=== PATIENT | female | born 1985 | race African-American/Black ===

== ENCOUNTER → 2020-04-23 08:19 | Outpatient (BNVA) | payer OTHER, SELFPAY | PROVIDERS: PCP Internal Medicine; Referring Provider Internal Medicine; Visit Provider Internal Medicine | DX: E04.2 Nontoxic multinodular goiter (principal); E55.9 Vitamin D deficiency, unspecified; E83.52 Hypercalcemia | CPT/HCPCS: Q3014 ==

== ENCOUNTER 2020-05-01 14:29 | Outpatient (REF) | payer OTHER, SELFPAY ==
[2020-05-02 11:09] LABS: BV Int Neg Control Negative (Negative); BV Int Pos Control Positive (Positive)
[2020-05-26 12:42] LABS: CT PCR NOT DETECTED (Not Detect.); NG PCR NOT DETECTED (Not Detect.)
== END 2020-05-01 14:30 | disposition home or self-care (01) ==
LOC: HO.LNP 14:29
PROVIDERS: Visit Provider Obstetrics & Gynecology
DX: N93.9 Abnormal uterine and vaginal bleeding, unspecified (principal)
CPT/HCPCS: 58100; 81025; 87480; 87491; 87510; 87591; 87660

== ENCOUNTER 2020-05-02 10:11 | Outpatient (REF) | payer OTHER, SELFPAY | END 2020-05-02 10:12 | disposition home or self-care (01) | LOC: HO.LAB 10:11 | PROVIDERS: Visit Provider Obstetrics & Gynecology | DX: N93.9 Abnormal uterine and vaginal bleeding, unspecified (principal); E66.9 Obesity, unspecified | CPT/HCPCS: 88305 ==

== ENCOUNTER → 2020-05-15 11:46 | Outpatient (BNVA) | payer OTHER, SELFPAY | PROVIDERS: PCP Internal Medicine; Visit Provider Obstetrics & Gynecology | DX: N84.0 Polyp of corpus uteri (principal); Z98.890 Other specified postprocedural states | CPT/HCPCS: Q3014 ==

== ENCOUNTER 2020-05-24 08:00 | Outpatient (REF) | payer OTHER, SELFPAY ==
--- NOTE | 2020-05-24 08:04 | US_ITS ---
EXAMINATION: US THYROID CLINICAL INFORMATION: Nontoxic multinodular goiter. COMPARISON: Ultrasound soft tissue head/neck thyroid dated 04/08/2019 and 01/11/2018 TECHNIQUE: Linear transducer wiggins-scale and color Doppler examination with attention to the region of the thyroid. FINDINGS: SIZE: Measurements of the thyroid lobes and nodules are given in sagittal, anteroposterior and transverse dimensions respectively. Right Thyroid Lobe: 4.9 x 1.4 x 2.1 cm, volume 7.5 mL. Previously 4.8 x 1.2 x 1.5 cm, volume 4.3 mL. Parenchyma: The gland echotexture is homogeneous. Thyroid vascularity is normal. Left Thyroid Lobe: 4.8 x 1.4 x 1.7 cm, volume 6.0 mL. Previously 4.7 x 1.5 x 1.4 cm, volume 5.3 mL. Parenchyma: The gland echotexture is homogeneous. Thyroid vascularity is normal. Isthmus: 0.3 cm in maximum AP dimension. Previously 0.2 cm. RIGHT THYROID LOBE: There are greater than 4 nodules seen. 1. Location: Superior. Size: 0.5 x 0.2 x 0.6 cm. Previous: 0.2 x 0.1 x 0.2 cm. Nodule characteristics: Heterogeneous, irregular shaped with intranodular flow. 2. Location: Superior. Size: 0.4 x 0.2 x 0.3 cm. Previous: New since the prior study. Nodule characteristics: Hypoechoic, irregular margins with intranodular flow. 3. Location: Middle. Size: 0.4 x 0.4 x 0.4 cm. Previous: 0.2 x 0.2 x 0.2 cm. Nodule characteristics: Hypoechoic, smoothly marginated with no intranodular flow. 4. Location: Superior/middle. Size: 0.3 x 0.3 x 0.3 cm. Previous: New since the prior study. Nodule characteristics: Hypoechoic, irregular margins with no intranodular flow. ISTHMUS: No nodules. LEFT THYROID LOBE: There are 3 nodules seen. 1. Location: Superior. Size: 0.3 x 0.2 x 0.2 cm. Previous: 0.2 x 0.2 x 0.2 cm. Nodule characteristics: Hypoechoic, smoothly marginated with no intranodular flow, likely simple cyst. 2. Location: Middle. Size: 1.4 x 0.7 x 1.1 cm. Previous: 0.9 x 0.5 x 0.8 cm. Nodule characteristics: Heterogeneous, smoothly marginated with intranodular flow. 3. Location: Middle. Size: 0.3 x 0.2 x 0.2 cm. Previous: New since the prior study. Nodule characteristics: Hypoechoic, irregular shaped with microcalcifications and peripheral flow. NODES: No lymphadenopathy is seen in the tissue surrounding the thyroid gland. US/US thyroid IMPRESSION: Multiple bilateral thyroid nodules with some of the nodules appearing minimally larger compared to previous study. Some of the nodules are new. One nodule in the lower pole left thyroid lobe seen previously is not visualized at this time.
== END 2020-05-24 08:01 | disposition home or self-care (01) ==
LOC: HO.US 08:00
PROVIDERS: Visit Provider Internal Medicine Endocrinology, Diabetes & Metabolism
DX: E04.2 Nontoxic multinodular goiter (principal)
CPT/HCPCS: 76536

== ENCOUNTER 2020-11-06 09:10 | Outpatient (REF) | payer OTHER, SELFPAY ==
[2020-11-06 11:43] LABS: Hematocrit 35.7 % (37-47); Hemoglobin 11.3 g/dl (12.0-16.0); Mean Corpuscular HGB Conc 31.7 g/dl (31.0-35.0); Mean Corpuscular Hemoglobin 26.1 pg (27.0-33.0); Mean Corpuscular Volume 82.4 fL (80-98); Mean Platelet Volume 9.5 fL (9.4-12.3); Platelet Count 400 X10*3/uL (160-400); Red Blood Count 4.33 X10*6/uL (4.20-5.50); Red Cell Distribution Width 14.7 % (11.0-16.0); White Blood Count 7.3 X10*3/uL (4.8-10.8)
[2020-11-06 12:19] LABS: Free T4 (Free Thyroxine) 0.83 ng/dL (0.71-1.85); Vitamin D 25-OH Total 15.3 ng/mL (>30)
[2020-11-06 12:24] LABS: Alanine Aminotransferase 14 U/L (0-31); Albumin Level 4.6 g/dL (3.5-5.0); Alkaline Phosphatase 88 U/L (39-117); Anion Gap 13 (12-20); Aspartate Amino Transferase 18 U/L (5-31); Bilirubin Total 0.4 mg/dL (0.0-1.0); Blood Urea Nitrogen 13 mg/dL (9-16); Calcium 9.7 mg/dL (8.4-10.2); Carbon Dioxide 25 mmol/L (22-29); Chloride 106 mmol/L (96-108); Estimated Glomerular Filt Rate > 60; Glucose Random 91 mg/dL (60-115); Iron 32 mcg/dL (30-160); Percent Iron Saturation 7 % (15-50); Phosphorus 3.9 mg/dL (2.7-4.5); Potassium 4.1 mmol/L (3.3-5.1); Sodium 140 mmol/L (135-145); Total Iron Binding Capacity 453 mcg/dL (228-428); Total Protein 7.7 g/dL (6.5-8.0); Unsaturated Iron Binding 421 ug/dL
[2020-11-06 12:34] LABS: Thyroid Stimulating Hormone 3.67 uIU/mL (0.32-4.0)
[2020-11-07 07:52] LABS: Triiodothyronine T3 Total 120 ng/dL (76-181)
[2020-11-07 14:27] LABS: Calcium (PTHI) 9.7 mg/dL (8.6-10.2); PTHI 53 pg/mL (14-64)
[2020-11-09 16:41] LABS: TS Negative Control Passed; TS Panel A 1; TS Panel B 0; TS Positive Control Passed; TSpotTB Negative (SeeBelow)
== END 2020-11-06 09:11 | disposition home or self-care (01) ==
LOC: HO.HMGCLDS 09:10
PROVIDERS: Internal Medicine; PCP Internal Medicine; Visit Provider Internal Medicine
DX: Z11.1 Encounter for screening for respiratory tuberculosis (principal); E04.2 Nontoxic multinodular goiter; D64.9 Anemia, unspecified; E83.52 Hypercalcemia
CPT/HCPCS: 36415; 80053; 82306; 82330; 83540; 83970; 84100; 84439; 84443; 84480; 85027; 86481

== ENCOUNTER → 2020-11-21 11:18 | Outpatient (BNVA) | payer OTHER, SELFPAY | PROVIDERS: PCP Internal Medicine; Visit Provider Internal Medicine ==

== ENCOUNTER 2021-04-25 09:45 | Outpatient (REF) | payer OTHER, SELFPAY | END 2021-04-25 09:46 | disposition home or self-care (01) | LOC: HO.US 09:45 | PROVIDERS: PCP Internal Medicine; Visit Provider Internal Medicine | DX: Z13.89 Encounter for screening for other disorder (principal) ==

== ENCOUNTER 2022-06-17 16:34 | Outpatient (REF) | payer OTHER, SELFPAY ==
[2022-06-17 17:27] LABS: Influenza A PCR NEGATIVE (Negative); Influenza B PCR NEGATIVE (Negative); Resp Syncy Virus RNA Qual PCR NEGATIVE (Negative); SARS COV2 PCR INHOUSE NEGATIVE (Negative)
== END 2022-06-17 16:35 | disposition home or self-care (01) ==
LOC: HO.LNP 16:34
PROVIDERS: Visit Provider Internal Medicine
DX: R09.89 Other specified symptoms and signs involving the circulatory and respiratory systems (principal); Z20.822 Contact with and (suspected) exposure to COVID-19
CPT/HCPCS: 0241U

== ENCOUNTER 2022-06-27 08:32 | Outpatient (REF) | payer OTHER, SELFPAY ==
[2022-06-27 11:31] LABS: MANUAL DIFF FLAG NO
[2022-06-27 11:59] LABS: Basophils Percent Auto 0.4 % (0-2); Eosinophils Absolute Auto 0.1 X10*3/uL (0.0-0.4); Eosinophils Percent Auto 1.3 % (0-4); Hematocrit 37.2 % (37.0-47.0); Hemoglobin 12.1 g/dl (12.0-16.0); Imm Gran Abs Auto 0.01 X10*3/uL (0.00-0.03); Imm Gran Pct Auto 0.1 % (0.0-0.4); Lymphocytes Absolute Auto 2.7 X10*3/uL (1.2-4.9); Lymphocytes Percent Auto 35.7 % (20-40); Mean Corpuscular HGB Conc 32.5 g/dl (31.0-35.0); Mean Corpuscular Hemoglobin 27.9 pg (27.0-33.0); Mean Corpuscular Volume 85.7 fL (80.0-98.0); Mean Platelet Volume 9.8 fL (9.4-12.3); Monocytes Absolute Auto 0.5 X10*3/uL (0.1-1.2); Monocytes Percent Auto 6.6 % (2-11); Neutrophils Absolute Auto 4.3 x10*3/uL (2.0-8.3); Neutrophils Percent Auto 55.9 % (45-73); Platelet Count 364 X10*3/uL (160-400); Red Blood Count 4.34 X10*6/uL (4.20-5.50); Red Cell Distribution Width 13.9 % (11.0-16.0); White Blood Count 7.7 X10*3/uL (4.8-10.8)
[2022-06-27 12:29] LABS: Alanine Aminotransferase 15 U/L (0-31); Albumin Level 4.3 g/dL (3.5-5.0); Alkaline Phosphatase 83 U/L (39-117); Anion Gap 14 (12-20); Aspartate Amino Transferase 18 U/L (5-31); Bilirubin Total 0.5 mg/dL (0.0-1.0); Blood Urea Nitrogen 12 mg/dL (9-16); Calcium 9.6 mg/dL (8.4-10.2); Carbon Dioxide 27 mmol/L (22-29); Chloride 105 mmol/L (96-108); Cholesterol 219 mg/dL; Estimated Glomerular Filt Rate > 60; Ferritin 48 ng/mL (10-122); Glucose Fasting 94 mg/dL (60-99); HDL Cholesterol 47 mg/dL; LDL Cholesterol Calculated 152 mg/dl; Potassium 4.5 mmol/L (3.3-5.1); Sodium 141 mmol/L (135-145); Total Protein 7.1 g/dL (6.5-8.0); Triglycerides 102 mg/dL
== END 2022-06-27 08:33 | disposition home or self-care (01) ==
LOC: HO.HMGCLDS 08:32
PROVIDERS: PCP Internal Medicine; Visit Provider Internal Medicine
DX: Z00.01 Encounter for general adult medical examination with abnormal findings (principal); D64.9 Anemia, unspecified; E83.52 Hypercalcemia
CPT/HCPCS: 36415; 80053; 80061; 82728; 85025

== ENCOUNTER 2022-09-12 11:29 | Outpatient (REF) | payer OTHER, SELFPAY ==
[2022-09-18 06:13] LABS: HPV mRNA E6/E7 rflx Not Detected (Not Detected)
== END 2022-09-12 11:30 | disposition home or self-care (01) ==
LOC: HO.LNP 11:29
PROVIDERS: PCP Internal Medicine; Visit Provider Advanced Practice Midwife
DX: Z01.411 Encounter for gynecological examination (general) (routine) with abnormal findings (principal); N92.6 Irregular menstruation, unspecified; R23.2 Flushing; R82.90 Unspecified abnormal findings in urine; Z20.2 Contact with and (suspected) exposure to infections with a predominantly sexual mode of transmission
CPT/HCPCS: 87624; 88142

== ENCOUNTER 2022-09-12 12:28 | Outpatient (REF) | payer OTHER, SELFPAY ==
[2022-09-12 14:15] LABS: HCG Quantitative < 2 mIU/mL; TSH reflex Free T4 2.54 uIU/mL (0.32-4.0)
[2022-09-13 04:35] LABS: CT PCR NOT DETECTED (Not Detect.); NG PCR NOT DETECTED (Not Detect.)
[2022-09-13 11:54] LABS: BV Int Neg Control Negative (Negative); BV Int Pos Control Positive (Positive)
[2022-09-14 13:39] LABS: DHEA Sulfate 105 mcg/dL (19-237); Follicle Stimulating Hormone 12.6 mIU/mL; Prolactin 6.3 ng/mL
[2022-09-23 11:59] LABS: Testosterone, Free 2.4 pg/mL (0.1-6.4); Testosterone, Total 18 ng/dL (2-45)
== END 2022-09-12 12:29 | disposition home or self-care (01) ==
LOC: HO.LAB 12:28
PROVIDERS: PCP Internal Medicine; Visit Provider Advanced Practice Midwife
DX: Z01.419 Encounter for gynecological examination (general) (routine) without abnormal findings (principal); N92.6 Irregular menstruation, unspecified; R23.2 Flushing; Z20.2 Contact with and (suspected) exposure to infections with a predominantly sexual mode of transmission
CPT/HCPCS: 0353U; 82627; 83001; 83498; 84146; 84402; 84403; 84443; 84702; 87480; 87510; 87660

== ENCOUNTER → 2022-09-18 07:29 | Outpatient (BNVA) | payer OTHER, SELFPAY | PROVIDERS: PCP Internal Medicine; Visit Provider Advanced Practice Midwife ==

== ENCOUNTER → 2022-09-24 07:43 | Outpatient (BNVA) | payer OTHER, SELFPAY | PROVIDERS: PCP Internal Medicine; Visit Provider Advanced Practice Midwife ==

== ENCOUNTER 2022-10-15 11:30 | Outpatient (REF) | payer OTHER, SELFPAY ==
--- NOTE | ~2022-10-15 | US_ITS ---
EXAMINATION: US PELVIS CLINICAL INFORMATION: Irregular menstruation. COMPARISON: None available. TECHNIQUE: Ultrasound of the pelvis is performed using both transabdominal and transvaginal transducers along with Doppler. Transvaginal imaging is performed due to inadequate visualization transabdominally. FINDINGS: Uterus: The uterus is anteverted and measures 8.1 x 4.5 x 5.5 cm The double wall endometrial thickness is 0.4 mm. The uterus is smooth in contour and has normal myometrial echogenicity. No visible fibroid. Adnexa: Both ovaries are visualized. There is normal color flow to the adnexa. There is no ovarian torsion. There is no pelvic ascites or fluid collection. Right ovary measures 2.0 x 1.4 x 2.1 cm. Volume 3.1 mL. There is an anechoic corpus luteal cyst measuring 1.6 x 0.9 x 1.6 cm. Left ovary measures 1.7 x 1.0 x 1.4 cm and volume 1.2 mL. Previously it measured 1.8 x 1.4 x 1.7 cm. There is no free fluid in the cul-de-sac. US/US pelvic and transvaginal IMPRESSION: 1. Unremarkable uterus. 2. Small corpus luteal cyst right ovary. 3. The left ovary is unremarkable.
== END 2022-10-15 11:31 | disposition home or self-care (01) ==
LOC: HO.US 11:30
PROVIDERS: PCP Internal Medicine; Visit Provider Advanced Practice Midwife
DX: N92.6 Irregular menstruation, unspecified (principal)
CPT/HCPCS: 76830; 76856

== ENCOUNTER → 2022-10-22 07:54 | Outpatient (BNVA) | payer OTHER, SELFPAY | PROVIDERS: PCP Internal Medicine; Visit Provider Advanced Practice Midwife ==

== ENCOUNTER 2022-10-23 12:08 | Outpatient (REF) | payer OTHER, SELFPAY ==
[2022-10-23 12:45] LABS: Appearance Urine Clear; Color Urine Yellow; Glucose Urine UA Negative (Negative); Leukocyte Esterase Urine Small (1+) (Negative); Nitrite Urine Negative (Negative); PH 5.5 (5.0-9.0); Specific Gravity - Urine >= 1.030 (1.005-1.025); UMIC TRIGGER UACC YES; Urine Blood Negative (Negative); Urine Ketones Trace mg/dL (Negative); Urine Protein Trace mg/dL (Neg-Trace)
[2022-10-23 13:07] LABS: Bacteria Urine None Seen (None Seen); Hyaline Casts Urine 0-2 /LPF (0-2); Squamous Epithelial Cell Urine 0-2 /HPF (0-2); UACC Culture Trigger YES; WBC Urine 0-5 /HPF (0-5)
== END 2022-10-23 12:09 | disposition home or self-care (01) ==
LOC: HO.LAB 12:08
PROVIDERS: PCP Internal Medicine; Visit Provider Advanced Practice Midwife
DX: R35.0 Frequency of micturition (principal)
CPT/HCPCS: 81001; 87086

== ENCOUNTER 2023-09-16 08:21 | Outpatient (AMB) | payer OTHER, SELFPAY ==
[2023-09-16 08:34] VITALS: BP 122/76; PULSE 60; O2SAT 98; BMI 38.4
--- NOTE | 2023-09-16 08:34 | MHC.OFFWIV ---
Intake Vital Signs 09/16/23 08:34 Height 5 ft 5 in Weight 231 lb BMI 38.4 BP 122/76 Blood Pressure Location Lt brachial Position Sitting Pulse 60 Pulse Source Pulse Oximeter Pulse Oximetry (%) 98 Oxygen Delivery Method Room Air Intake Visit Reasons: EP chest pain no triage Patient Tobacco Use Status: Never used Tobacco Allergies No Known Allergies [No Known Allergies*] Allergy (Verified 09/16/23 08:34) Medication List - Last Reconciled 09/16/23 by Jessica Michelle MD cholecalciferol (vitamin D3) 50 mcg PO DAILY 30 days ferrous sulfate 200 mg PO DAILY medroxyprogesterone (Provera) 10 mg PO DAILY Do you need a note to return to daycare/school/sports/work: No HPI EP chest pain no triage HPI Details Patient is a 38-year-old female came in today with a chief complaint of chest pain Patient says that it has been happening since July and on Sometime it last 2 minutes sometimes it lasts up to 7 minute Feels like a pressure in the middle of the chest Patient says that initially it was happening after eating but then it start happening randomly She was in emergency room last year for that and was given Prilosec but that caused epigastric discomfort so she stopped taking it EKG done today showed sinus rhythm with slight sinus arrhythmia and heart rate of 58 beats per minute I have ordered Holter monitor and echocardiogram for the patient And she is to start famotidine 20 mg b.i.d. Also we talked about the dietary restrictions, I would like her to avoid acidic foods specially tomato sauce, lemon juice, orange juice And stopped eating at least 4 hours before bedtime. Patient have appointment for physical exam coming up in a month, she will have follow-up at that visit as well. 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 She will bring that paperwork. [facility] Medical History Cyst of right ovary Frequency of urination Multinodular thyroid History of pre-eclampsia Heart murmur Anemia Menorrhagia Irregular uterine bleeding Dysfunctional uterine bleeding Anxiety Multiple thyroid nodules Low hemoglobin Vitamin D deficiency Enlarged thyroid Obesity Surgical History Hx of cholecystectomy Family History Mother Thyroid nodule Father Medical history unknown Other Mental health disorder Social History Household Members: Family Housing: Apartment Are you a primary post acute care nurse practitioner to a significant other at home: No Alcohol intake: never Patient Tobacco Use Status: Never used Tobacco e-Cigarette/Vaping Use: Never Used Current occupational status: employed 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 needs: No Hearing needs: No Vision needs: No Female Reproductive History Menstrual Age of Menarche: 14 Review of Systems Const Denies chills and Denies fever(s) ENT Denies epistaxis and Denies nasal discharge Resp Denies chest congestion, Denies cough and Denies hemoptysis GI Denies diarrhea and Denies nausea Skin/Breast Denies rash Neuro Reports no additional complaints Psych Reports no additional complaints Endo Reports no additional complaints Physical Exam Vital Signs: Last Vital Signs Pulse 60 09/16/23 08:34 BP 122/76 09/16/23 08:34 Pulse Ox 98 09/16/23 08:34 Oxygen Delivery Method Room Air 09/16/23 08:34 BMI result Body Mass Index 38.4 Const General: cooperative, comfortable and no acute distress Orientation/consciousness: patient oriented x3 HEENT Head: Yes normocephalic Eyes General: appearance normal, both eyes and all related structures Neck Other: Supple Neck: Yes supple Resp Effort & Inspection: normal respiratory effort, no cough and no stridor Cardio Rhythm: regular rhythm Heart sounds: S1 normal heart sound present and S2 normal heart sound present Skin General skin exam: turgor normal Neuro Other: Motor sensory intact General: patient oriented x3, tone normal and moves all extremities Extrem Other: No lower extremity swelling. Right lower extremity: no edema Left lower extremity: no edema Psych Other: Normal effect, speech clear Assessment & Plan Assessment & Plan (1) Chest pain: Code(s): R07.9 - Chest pain, unspecified Qualifiers: Chest pain type: other chest pain Qualified Code(s): R07.89 - Other chest pain (2) Bradycardia: Code(s): R00.1 - Bradycardia, unspecified (3) Sinus arrhythmia: Code(s): I49.8 - Other specified cardiac arrhythmias (4) Obesity due to excess calories: Code(s): E66.09 - Other obesity due to excess calories Qualifiers: Body mass index: BMI 38.0-38.9 Obesity classification: adult class 2 (BMI 35 - 39.9) Serious obesity comorbidity presence: without serious comorbidity Qualified Code(s): E66.09 - Other obesity due to excess calories; Z68.38 - Body mass index [BMI] 38.0-38.9, adult (5) Chronic GERD: Code(s): K21.9 - Gastro-esophageal reflux disease without esophagitis (6) Stress at work: Code(s): Z56.6 - Other physical and mental strain related to work Plan Patient is a 38-year-old female came in today with a chief complaint of chest pain Patient says that it has been happening since July and on Sometime it last 2 minutes sometimes it lasts up to 7 minute Feels like a pressure in the middle of the chest Patient says that initially it was happening after eating but then it start happening randomly She was in emergency room last year for that and was given Prilosec but that caused epigastric discomfort so she stopped taking it EKG done today showed sinus rhythm with slight sinus arrhythmia and heart rate of 58 beats per minute I have ordered Holter monitor and echocardiogram for the patient And she is to start famotidine 20 mg b.i.d. Also we talked about the dietary restrictions, I would like her to avoid acidic foods specially tomato sauce, lemon juice, orange juice And stopped eating at least 4 hours before bedtime. Patient have appointment for physical exam coming up in a month, she will have follow-up at that visit as well. 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 She will bring that paperwork. 40 minutes spent in care of this patient, including [id number], EKG, ordering tests Charting, coordination of care Orders: Orders ECG 3 day holter monitor Today R00.1 - Bradycardia, unspecified CA echo transthoracic complete Today I49.8 - Other specified cardiac arrhythmias, R00.1 - Bradycardia, unspecified Medications: New famotidine 20 mg PO BID 60 tabs 0RF 30 days Coding Level of Care Code Est Pt Level 5 (64639) Diagnoses Other chest pain R07.89 Chest pain type: other chest pain Bradycardia R00.1 Sinus arrhythmia I49.8 Class 2 obesity due to excess calories without serious comorbidity with body mass index (BMI) of 38.0 to 38.9 in adult E66.09; Z68.38 Body mass index: BMI 38.0-38.9 Obesity classification: adult class 2 (BMI 35 - 39.9) Serious obesity comorbidity presence: without serious comorbidity Chronic GERD K21.9 Stress at work Z56.6 Comment
== END 2023-09-16 09:02 | disposition home or self-care (01) ==
PROVIDERS: PCP Internal Medicine; Visit Provider Internal Medicine
DX: R07.89 Other chest pain (principal); R00.1 Bradycardia, unspecified; E66.09 Other obesity due to excess calories; Z68.38 Body mass index [BMI] 38.0-38.9, adult; K21.9 Gastro-esophageal reflux disease without esophagitis; Z56.6 Other physical and mental strain related to work
CPT/HCPCS: 93000; 99215

== ENCOUNTER 2023-09-29 11:45 | Outpatient (AMB) | payer OTHER, SELFPAY ==
--- NOTE | 2023-09-29 11:47 | A.OFFPC_ITS ---
Vital Signs 09/29/23 11:50 Height 5 ft 5 in Weight 230 lb 8 oz BMI 38.4 BP 122/78 Blood Pressure Location Rt brachial Position Sitting Pulse 80 Pulse Source Pulse Oximeter Pulse Oximetry (%) 99 Oxygen Delivery Method Room Air Intake Visit Reasons: Annual Physical~ Allergies No Known Allergies [No Known Allergies*] Allergy (Verified 09/29/23 11:54) Medication List - Last Reconciled 09/29/23 by Jessica Michelle MD cholecalciferol (vitamin D3) 50 mcg PO DAILY 30 days famotidine 20 mg PO BID 30 days ferrous sulfate 200 mg PO DAILY medroxyprogesterone (Provera) 10 mg PO DAILY Tobacco use date assessed: 09/29/23 Dental Screening Dental Screen Date: 09/29/23 Did you have a dental visit in the last 12 months?: Yes Did you have a dental problem in the last 6 months where you did not have access to dental care?: No Was dental information given to patient?: Patient has dentist HPI Annual Physical~ HPI Details Patient is a 38-year-old female came in today for physical examination She was started on famotidine last visit 2 weeks ago when she verbalized to having chest discomfort off and on Her EKG showed bradycardia of 58 beats per minute without any ST-T findings I did order echocardiogram and Holter monitor for the patient, cardiac lab has been trying to reach her but has not been able to. Cardiac lab number was given to patient today so she can call in book her own appointment However with the help of famotidine 2 times a day patient is feeling better, I would recommend to continue that for at least 3 months Labs done in June, there is no anemia, kidney function liver in functions intact BMI is elevated and her LDL was 152 We will be booking appointment with dietitian for dietary instructions. Ferritin level is 48, she may cut down iron supplement to every other day, still having heavy menstrual cycle She has OBGYN and is seeing them regularly. Follow-up 1 year physical exam [facility] Medical History Cyst of right ovary Frequency of urination Multinodular thyroid History of pre-eclampsia Heart murmur Anemia Menorrhagia Irregular uterine bleeding Dysfunctional uterine bleeding Anxiety Multiple thyroid nodules Low hemoglobin Vitamin D deficiency Enlarged thyroid Obesity Surgical History Hx of cholecystectomy Family History Mother Thyroid nodule Father Medical history unknown Other Mental health disorder Social History Household Members: Family Housing: Apartment Are you a primary healthcare recruiter to a significant other at home: No Alcohol intake: never Patient Tobacco Use Status: Never used Tobacco e-Cigarette/Vaping Use: Never Used Current occupational status: employed 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 1. Little interest or pleasure in doing things: not at all 2. Feeling down, depressed, or hopeless: not at all 3. Trouble falling or staying asleep, or sleeping too much: more than half the days 4. Feeling tired or having little energy: more than half the days 5. Poor appetite or overeating: not at all 6. Feeling bad about yourself - or that you are a failure or have let yourself or your family down: not at all 7. Trouble concentrating on things, such as reading the newspaper or watching television: not at all 8. Moving or speaking so slowly that other people could have noticed. Or the opposite - being so fidgety or restless that you have been moving around a lot more than usual: not at all 9. Thoughts that you would be better off or of hurting yourself in some way: not at all Total score: 4 Depression Screening Interpretation: Negative Depression Screening Done: Yes 63273 - PHQ-9 Billing: Yes Source: Developed by Drs. Ajith Sorto, Rachell Courtney, James Astudillo and colleagues, with an educational kristina from [employer]. Thrive Questionnaire Date Thrive assessed: 09/29/23 I am a: Patient What is your living situation today?: I have a steady place to live Within the past 12 months, did the food you bought not last and you didn't have the money to get more?: Never true Within the past 12 months, did you worry whether your food would run out before you got money to buy more?: Never true Do you have trouble paying for medicines?: No Do you have trouble getting transportation to medical appointments?: No Do you have trouble paying your heating and electricity bill?: No Do you have trouble taking care of your child, family member or friend?: No Do you have trouble with day-to-day activities such as bathing, preparing meals, shopping, managing finances, etc.?: No Are you currently unemployed and looking for a job?: No Are you interested in more education?: Yes Please select the resources that you would like help with: None Currently or been in a relationship where the following occur: no concerns reported THRIVE Score: 0 AUDIT C Alcohol Use Questionnaire (AUDIT-C) 1. How often do you have a drink containing alcohol?: Never 3. How often do you have six or more drinks on one occasion?: Never Total Score: 0 Score Reviewed/Action Taken: Yes GALINA-7 AMB Questionnaire GALINA-7 Date GALINA - 7 assessed: 09/29/23 Feeling nervous, anxious, or on edge: 0 = Not at all Not being able to stop or control worryin = Not at all Worrying too much about different things: 0 = Not at all Trouble relaxin = More than half the days Being so restless that it is hard to sit still: 0 = Not at all Becoming easily annoyed or irritable: 0 = Not at all Feeling afraid as if something awful might happen: 0 = Not at all Total GALINA-7 score (0-4 normal; 5-9 mild; 10-14 moderate; 15-21 severe): 2 Source: Developed by Drs. Ajith Sorto, Rachell Courtney, James Astudillo and colleagues, with an educational kristina from [employer]. GALINA-7 Assessment Billing GALINA-7 Assessment Tool: GALINA-7 Assessment 71471 Review of Systems Const Denies chills, Denies fever(s) and Denies headache(s) Eyes Denies blurry vision ENT Denies headache(s), Denies nasal discharge, Denies nasal obstruction, Denies odynophagia and Denies sinus pain Card Denies chest pain at rest and Denies chest pain with activity Resp Denies cough and Denies hemoptysis GI Denies diarrhea, Denies odynophagia, Denies vomiting and Denies hematemesis Reports as per HPI Musc Denies abnormal gait Skin/Breast Reports as per HPI Neuro Denies Neuro-related abnormal movements, Denies Abnormal speech present, Denies abnormal gait, Denies headache(s) and Denies Sensory deficit (Neuro) Psych Denies mood swings and Denies paranoia Endo Reports as per HPI Mak/Lymph Reports as per HPI Aller/Immun Reports as per HPI Physical exam (Primary Care) Vital Signs: Last Vital Signs Pulse 80 09/29/23 11:50 BP 122/78 09/29/23 11:50 Pulse Ox 99 09/29/23 11:50 Oxygen Delivery Method Room Air 09/29/23 11:50 BMI result Body Mass Index 38.4 Tobacco/Smoking Status: Tobacco use Status Tobacco use date assessed 09/29/23 09/29/23 11:54 Patient Tobacco Use Status Never used Tobacco 09/29/23 11:47 e-Cigarette/Vaping Use Never Used 09/29/23 11:47 Depression Screening Interpretation: Negative Thrive Assessment: Date of Thrive Assessment Date Thrive assessed 06/17/22 09/29/23 11:47 Currently or been in a relationship where the following occur: no concerns reported Const General: cooperative, comfortable and no acute distress Orientation/consciousness: patient oriented x3 HENMT Head: Yes normocephalic and Yes atraumatic Eyes General: appearance normal, both eyes and all related structures Pupils: Equal, round and reactive pupils present EOM: EOMs intact bilaterally Neck Neck: Yes supple and No lymphadenopathy Thyroid: Thyroid normal Lymphatic: no lymphadenopathy noted Resp Effort & Inspection: normal respiratory effort and able to speak in complete sentences Auscultation: clear to auscultation bilaterally Cardio Heart sounds: S1 normal heart sound present and S2 normal heart sound present GI Palpation (GI): Soft to palpation and nontender Auscultation: normal bowel sounds General: Yes no CVA tenderness Back/Spine/Pelvis Back: no CVA tenderness Skin General skin exam: elasticity normal and turgor normal Neuro General: patient oriented x3 and gait normal Cranial nerves: Yes Equal, round and reactive pupils present Speech: No Abnormal speech present Sensory Exam: No Sensory deficit (Neuro) Coordination: tandem gait normal and Romberg test negative Extrem General: Yes normal exam except as noted and No edema Assessment and Plan Assessment & Plan (1) Encounter for general adult medical examination with abnormal findings: Code(s): Z00.01 - Encounter for general adult medical examination with abnormal findings (2) Bradycardia: Code(s): R00.1 - Bradycardia, unspecified (3) Obesity due to excess calories: Code(s): E66.09 - Other obesity due to excess calories Qualifiers: Body mass index: BMI 38.0-38.9 Obesity classification: adult class 2 (BMI 35 - 39.9) Serious obesity comorbidity presence: without serious comorbidity Qualified Code(s): E66.09 - Other obesity due to excess calories; Z68.38 - Body mass index [BMI] 38.0-38.9, adult (4) Chronic GERD: Code(s): K21.9 - Gastro-esophageal reflux disease without esophagitis (5) Lipid disorder: Code(s): E78.9 - Disorder of lipoprotein metabolism, unspecified Plan Patient is a 38-year-old female came in today for physical examination She was started on famotidine last visit 2 weeks ago when she verbalized to having chest discomfort off and on Her EKG showed bradycardia of 58 beats per minute without any ST-T findings I did order echocardiogram and Holter monitor for the patient, cardiac lab has been trying to reach her but has not been able to. Cardiac lab number was given to patient today so she can call in book her own appointment However with the help of famotidine 2 times a day patient is feeling better, I would recommend to continue that for at least 3 months Labs done in June, there is no anemia, kidney function liver in functions intact BMI is elevated and her LDL was 152 We will be booking appointment with dietitian for dietary instructions. Ferritin level is 48, she may cut down iron supplement to every other day, still having heavy menstrual cycle She has OBGYN and is seeing them regularly. Follow-up 1 year physical exam Medications: Changed From famotidine 20 mg PO BID 30 days 60 tabs 0RF To famotidine 20 mg PO BID 90 days 180 tabs 1RF From cholecalciferol (vitamin D3) 50 mcg PO DAILY 30 days 30 caps 11RF To cholecalciferol (vitamin D3) 50 mcg PO DAILY 90 days 90 caps 1RF Coding Level of Care Code Est Pt Prev Care 18-39y(35600) Diagnoses Encounter for general adult medical examination with abnormal findings Z00.01 Bradycardia R00.1 Class 2 obesity due to excess calories without serious comorbidity with body mass index (BMI) of 38.0 to 38.9 in adult E66.09; Z68.38 Body mass index: BMI 38.0-38.9 Obesity classification: adult class 2 (BMI 35 - 39.9) Serious obesity comorbidity presence: without serious comorbidity Chronic GERD K21.9 Lipid disorder E78.9 Additional Codes GALINA-7 Assessment Billing - GALINA-7 Assessment Tool: GALINA-7 Assessment [id number] ([id number])
[2023-09-29 11:50] VITALS: BP 122/78; PULSE 80; O2SAT 99; BMI 38.4
== END 2023-09-29 12:33 | disposition home or self-care (01) ==
PROVIDERS: PCP Internal Medicine; Visit Provider Internal Medicine
DX: Z00.00 Encounter for general adult medical examination without abnormal findings (principal); R00.1 Bradycardia, unspecified; E66.09 Other obesity due to excess calories; Z68.38 Body mass index [BMI] 38.0-38.9, adult; K21.9 Gastro-esophageal reflux disease without esophagitis; E78.9 Disorder of lipoprotein metabolism, unspecified
CPT/HCPCS: 99395

== ENCOUNTER 2023-10-01 08:34 | Outpatient (AMB) | payer OTHER, SELFPAY ==
--- NOTE | 2023-10-01 09:52 | A.OFFPC_ITS ---
Intake Visit Reasons: FMLA Paperwork~ [phone] Allergies No Known Allergies [No Known Allergies*] Allergy (Verified 09/29/23 11:54) Medication List - Last Reconciled 10/01/23 by Jessica Michelle MD cholecalciferol (vitamin D3) 50 mcg PO DAILY 90 days famotidine 20 mg PO BID 90 days ferrous sulfate 200 mg PO DAILY medroxyprogesterone (Provera) 10 mg PO DAILY Tobacco use date assessed: 09/29/23 Dental Screening Dental Screen Date: 09/29/23 HPI FMLA Paperwork~ [phone] HPI Details Patient is 38 year old female who has been having chest pains off and on associated with Dizziness she took sometimes off from work in jun, when she was also evaluated in ER for that she is under investigation for that at this time she want FMLA paper work filled at this time as she will be taking some times off those days when she is not feeling well June 19 2023 till 02/17/2024 Still has not called cardiac lab for echo and Holter apts advised patient to do so khadra i have also placed Cardio referral for her [facility] Medical History Cyst of right ovary Frequency of urination Multinodular thyroid History of pre-eclampsia Heart murmur Anemia Menorrhagia Irregular uterine bleeding Dysfunctional uterine bleeding Anxiety Multiple thyroid nodules Low hemoglobin Vitamin D deficiency Enlarged thyroid Obesity Surgical History Hx of cholecystectomy Family History Mother Thyroid nodule Father Medical history unknown Other Mental health disorder Social History Household Members: Family Housing: Apartment Are you a primary child care associate teacher to a significant other at home: No Alcohol intake: never Patient Tobacco Use Status: Never used Tobacco e-Cigarette/Vaping Use: Never Used Current occupational status: employed 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 Ajith Sorto, Rachell Courtney, James Astudillo and colleagues, with an educational kristina from [employer]. Review of Systems Const Denies chills and Denies fever(s) ENT Denies epistaxis and Denies nasal discharge Resp Denies chest congestion, Denies cough and Denies hemoptysis GI Denies diarrhea and Denies nausea Skin/Breast Denies rash Neuro Reports no additional complaints Psych Reports no additional complaints Endo Reports no additional complaints Physical exam (Primary Care) Tobacco/Smoking Status: Tobacco use Status Tobacco use date assessed 09/29/23 10/01/23 09:54 Patient Tobacco Use Status Never used Tobacco 10/01/23 09:54 e-Cigarette/Vaping Use Never Used 10/01/23 09:54 Thrive Assessment: Date of Thrive Assessment Date Thrive assessed 09/29/23 10/01/23 09:54 Telehealth Telehealth Telehealth Platform: FRM Study Course Location of provider rendering services: practice address Location of patient: address on file Patient Identification confirmed using: Name, : Yes Telehealth method: video (attempted) Patient verbally consented to treatment: Yes Patient verbally consented to billing insurance company: Yes Patient informed of any privacy concerns related to visit: Yes Minutes spent on Phone/Video with Pt.: 17 Assessment and Plan Assessment & Plan (1) Chest pain: Code(s): R07.9 - Chest pain, unspecified Qualifiers: Chest pain type: other chest pain Qualified Code(s): R07.89 - Other chest pain (2) Bradycardia: Code(s): R00.1 - Bradycardia, unspecified Plan Patient is 38 year old female who has been having chest pains off and on associated with Dizziness she took sometimes off from work in jun, when she was also evaluated in ER for that she is under investigation for that at this time she want FMLA paper work filled at this time as she will be taking some times off those days when she is not feeling well June 19 2023 till 02/17/2024 Still has not called cardiac lab for echo and Holter apts advised patient to do so khadra i have also placed Cardio referral for her Orders: Referrals Cardiology Referral R00.1 - Bradycardia, unspecified, R07.89 - Other chest pain Coding Level of Care Code Tele Est Pt Level 3 (55382) Diagnoses Other chest pain R07.89 Chest pain type: other chest pain Bradycardia R00.1
== END 2023-10-01 10:46 | disposition home or self-care (01) ==
LOC: HO.HMGC 08:34
PROVIDERS: PCP Internal Medicine; Visit Provider Internal Medicine
DX: R07.89 Other chest pain (principal); R00.1 Bradycardia, unspecified
CPT/HCPCS: 99213

== ENCOUNTER 2023-10-16 08:24 | Outpatient (AMB) | payer OTHER, SELFPAY ==
--- NOTE | 2023-10-16 08:33 | AM.OFFWIN_ITS ---
Intake Vital Signs 10/16/23 08:34 Height 5 ft 5 in Weight 230 lb BMI 38.3 BP 122/70 Blood Pressure Location Rt brachial Position Sitting Pulse 78 Pulse Source Pulse Oximeter Temp 98.2 F Temp Source Oral Pulse Oximetry (%) 100 Oxygen Delivery Method Room Air Intake Visit Reasons: Est/ congestion (lobby masked) Intake Note: pt is here for c/o runny nose, congestion, fever, chills since thursday Patient Tobacco Use Status: Never used Tobacco Allergies No Known Allergies [No Known Allergies*] Allergy (Verified 10/16/23 08:35) Do you need a note to return to daycare/school/sports/work: Yes HPI HPI Comments History of Present Illness Details She presents to office wit cold symptoms Ongoing since Thursday Fever chills, congestion, ST. cough, chest tightness +increase urination, increased thurst an d fatigue No hx diabetes No dysurian, hematuria, back or abdominal pain She took Tylenol for fever No other medicine taken Worst complaint is ST, cough and headache No covid tests at home taken She denies phlegm with cough PFSH Medical History Cyst of right ovary Frequency of urination Multinodular thyroid History of pre-eclampsia Heart murmur Anemia Menorrhagia Irregular uterine bleeding Dysfunctional uterine bleeding Anxiety Multiple thyroid nodules Low hemoglobin Vitamin D deficiency Enlarged thyroid Obesity Surgical History Hx of cholecystectomy Family History Mother Thyroid nodule Father Medical history unknown Other Mental health disorder Social History Household Members: Family Housing: Apartment Are you a primary laboratory animal care veterinarian to a significant other at home: No Alcohol intake: never Patient Tobacco Use Status: Never used Tobacco e-Cigarette/Vaping Use: Never Used Current occupational status: employed 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 needs: No Hearing needs: No Vision needs: No Female Reproductive History Menstrual Age of Menarche: 14 Review of Systems Const Reports chills, Reports fatigue, Reports fever(s) and Reports headache(s) Eyes Denies blurry vision and Denies change in vision ENT Denies dizziness, Denies otalgia, Reports headache(s), Reports nasal discharge, Denies sinus pressure, Reports sore throat and Denies throat swelling Card Denies syncope and Denies rapid heart rate Resp Reports chest congestion, Reports cough and Reports pain with cough GI Denies abdominal pain, Denies constipation, Denies diarrhea, Denies nausea and Denies vomiting Denies hematuria, Denies dysuria, Denies urinary hesitancy, Denies urinary urgency and Reports other (urinary frequency ) Musc Denies back pain and Denies myalgias Skin/Breast Denies rash Neuro Denies dizziness, Denies syncope and Reports headache(s) Endo Reports fatigue and Reports polydipsia Aller/Immun Denies throat swelling Physical Exam Vital Signs: Last Vital Signs Temp 98.2 F 10/16/23 08:34 Pulse 78 10/16/23 08:34 BP 122/70 10/16/23 08:34 Pulse Ox 100 10/16/23 08:34 Oxygen Delivery Method Room Air 10/16/23 08:34 BMI result Body Mass Index 38.3 General: Non-toxic, NAD. Speaking full sentences. Skin: Warm dry throughout Eye: EOMI HENT: Airway patent. Uvula midline. No pharyngeal erythema or edema. No [employer]. Bilateral canals clear. TM non-erythematous, non-bulging. No TM perforation or hemotympanum noted. Lymph: No lymphadenopathy Respiratory: CTA bilaterally. No wheezes, rales or rhonchi. + dry cough on examination Cardiac: RRR. No murmur MSK: Full ROM extremities. Neurology: A/O. No aphasia or facial droop. Gait without abnormality Psych: Good mood and affect Assessment & Plan Assessment & Plan (1) Upper respiratory infection: Code(s): J06.9 - Acute upper respiratory infection, unspecified Qualifiers: URI type: unspecified viral URI Qualified Code(s): J06.9 - Acute upper respiratory infection, unspecified Plan: Patient seen and evaluated. Vitals stable and lungs cta Strep: negative Covid/Flu/RSV ordered and obtained Tessalon for cough F/U with PCP Work note given Patient gave verbal understanding and had no additional questions or concerns at time of discharge All questions answered (2) Increased thirst: Code(s): R63.1 - Polydipsia Plan: Obtained a poc glucose. pt states minimal to eat/drink this am prior to visit. POC glucose: 100 Pt declined giving urine sample as she states she can't and has no other UTI symptoms such as back pain, abdominal pain, hematuria, urgency, dysuria or hesitency Orders: Orders SARS-CoV2/FLU/RSV Today J06.9 - Acute upper respiratory infection, unspecified Medications: New benzonatate 100 mg PO BID-TID PRN 14 caps 0RF cough Coding Level of Care Code Est Pt Level 3 (01899) Diagnoses Viral upper respiratory tract infection J06.9 URI type: unspecified viral URI Increased thirst R63.1
[2023-10-16 08:34] VITALS: BP 122/70; PULSE 78; TEMP 36.8; O2SAT 100; BMI 38.3
== END 2023-10-16 12:40 | disposition home or self-care (01) ==
PROVIDERS: PCP Internal Medicine; Visit Provider Physician Assistant
DX: J06.9 Acute upper respiratory infection, unspecified (principal); R63.1 Polydipsia
CPT/HCPCS: 99213

== ENCOUNTER 2023-10-16 10:50 | Outpatient (REF) | payer OTHER, SELFPAY ==
[2023-10-16 12:14] LABS: Influenza A PCR NEGATIVE (Negative); Influenza B PCR NEGATIVE (Negative); Resp Syncy Virus RNA Qual PCR NEGATIVE (Negative); SARS COV2 PCR INHOUSE NEGATIVE (Negative)
== END 2023-10-16 10:51 | disposition home or self-care (01) ==
LOC: HO.LNP 10:50
PROVIDERS: Visit Provider Physician Assistant
DX: J06.9 Acute upper respiratory infection, unspecified (principal)
CPT/HCPCS: 0241U

== ENCOUNTER 2023-10-22 09:21 | Outpatient (AMB) | payer OTHER, SELFPAY ==
[2023-10-22 09:33] VITALS: BP 122/70; BMI 37.9
--- NOTE | 2023-10-22 09:33 | A.OFFVIS_ITS ---
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 Doing well with concerns: No menses for 3 months, admits to stress having a cardiac workup due to chest pain initially thought to have acid reflux and has started famotidine. 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 Denies any signs of hirsutism, nipple discharge, or other symptoms. Is not currently sexually active and denies any risk to . Declines need for STD screening. Denies any vaginal itching or irritation Denies family history of breast, ovarian or colon cancer. Last pap smear 2022, negative. [facility] Medical History Cyst of right ovary Frequency of urination Multinodular thyroid History of pre-eclampsia Heart murmur Anemia Menorrhagia Irregular uterine bleeding Dysfunctional uterine bleeding Anxiety Multiple thyroid nodules Low hemoglobin Vitamin D deficiency Enlarged thyroid Obesity Surgical History Hx of cholecystectomy Family History Mother Thyroid nodule Father Medical history unknown Other Mental health disorder Social History Household Members: Family Housing: Apartment Are you a primary career information specialist to a significant other at home: No Alcohol intake: never Patient Tobacco Use Status: Never used Tobacco e-Cigarette/Vaping Use: Never Used Current occupational status: employed 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 needs: No Hearing needs: No Vision needs: No Female Reproductive History Menstrual Age of Menarche: 14 Duration of menses: 8-10 days control method: none Total pregnancies: 1 Full term: 1 Number of Living Children: 1 Date of last pap smear: 09/12/22 (negative) Review of Systems Const All systems reviewed & are unremarkable except as noted in HPI and below Reports as per HPI Eyes Reports no additional complaints ENT Reports no additional complaints Card Reports no additional complaints Resp Reports no additional complaints GI Reports as per HPI and Reports no additional complaints Reports as per HPI Musc Reports no additional complaints Skin/Breast Reports as per HPI Neuro Reports no additional complaints Psych Reports no additional complaints Endo Reports no additional complaints Mak/Lymph Reports no additional complaints Aller/Immun Reports no additional complaints Physical Exam Vital Signs: Last Vital Signs BP 122/70 10/22/23 09:33 BMI result Body Mass Index 37.9 Const General: cooperative, healthy appearing, no acute distress, well developed and alert Orientation/consciousness: patient oriented x3 HEENT Head: Yes normal to inspection Eyes General: appearance normal, both eyes and all related structures Neck Neck: Yes normal visual inspection Thyroid: Thyroid normal Chest Chest palpation & inspection: normal inspection of the chest and other (no puckering, dimpling, peau de orange, retraction, discharge, masses) Breast/axilla inspection: normal inspection of the breasts Breast/axilla palpation: normal palpation of the breasts Resp Effort & Inspection: normal respiratory effort GI Inspection: Yes normal to inspection Palpation (GI): Soft to palpation Rectal Exam - Female: deferred General: Yes bladder normal to palpation External Female Exam: normal external appearance and normal appearance of the urethra Speculum Exam - Vagina: normal appearance of the vagina, normal palpation, normal vaginal discharge and other (Small amount of blood at cervix and vagina) Speculum Exam - Cervix: normal appearance of the cervix and normal palpation Bimanual exam- vagina & uterus: normal bimanual exam, normal palpation, uterine size normal, bladder normal to palpation, normal palpation and non-tender Bimanual Exam- Adnexa, other: no masses Skin General skin exam: no rashes or lesions noted Rashes: no rashes Neuro General: patient oriented x3 Cognition (Neuro): normal cognition Extrem General: Yes normal to inspection Psych Attitude: cooperative Thought process: Normal thought process present Assessment & Plan Assessment & Plan (1) Encounter for well woman exam with routine gynecological exam: Code(s): Z01.419 - Encounter for gynecological examination (general) (routine) without abnormal findings Category: Medical (2) Amenorrhea: Code(s): N91.2 - Amenorrhea, unspecified Category: Medical Plan Discussed: Current recommendations for pap smears per ASCCP guidelines. Breast awareness and periodic breast exams. Maintain a healthy lifestyle including a well balanced diet and routine exercise. Workup for amenorrhea to include labs, plan follow up- okay for tele visit for results. 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 Common causes for amenorrhea including stress and obesity, other sources listed. Encouraged the weight loss small steps and goals may help balance any hormonal shifts. Reduction of stress. Patient verbalizes understanding and agrees to the plan of care. She was given opportunity to ask questions and all questions were answered to the best of my ability. RTO in one year for annual physician gynecologist examination. This note is constructed using voice recognition software. While every effort has been made to ensure accuracy, industrial hygiene engineer errors may have been included. Orders: Orders HCG Quantitative Today N91.2 - Amenorrhea, unspecified Prolactin Today N91.2 - Amenorrhea, unspecified Thyroid Stimulating Hormone Today N91.2 - Amenorrhea, unspecified Follicle Stimulating Hormone Today N91.2 - Amenorrhea, unspecified Estrad Free (Tot Ultra + Free) Today N91.2 - Amenorrhea, unspecified Coding Level of Care Code Est Pt Prev Care 18-39y(08178) Diagnoses Encounter for well woman exam with routine gynecological exam Z01.419 Amenorrhea N91.2
== END 2023-10-22 10:01 | disposition home or self-care (01) ==
LOC: HO.HWSW 09:21
PROVIDERS: PCP Internal Medicine; Visit Provider Advanced Practice Midwife
DX: Z01.419 Encounter for gynecological examination (general) (routine) without abnormal findings (principal); N91.2 Amenorrhea, unspecified
CPT/HCPCS: 99395

== ENCOUNTER → 2023-10-22 10:09 | Outpatient (REF) | payer OTHER, SELFPAY ==
--- NOTE | 2023-10-22 10:23 | HM_ITS ---
* Total monitoring time about 5 days. * Underlying rhythm is sinus with an average rate of 78/Min. * Very rare supraventricular and ventricular ectopy. * No sustained arrhythmias. * No significant pauses or AV blocks. * No patient markers and diary not submitted. MTDD
--- NOTE | 2023-10-22 10:23 | CA_ITS ---
Transthoracic Echocardiogram Patient (Last, First, Middle): Aicha Ward, Gender: Female Date of : 1985 Age: 38 Procedure Date: 10/22/2023 Procedure Type: Transthoracic Echocardiogram Location: OP Height: 165.1 cm Weight: 132.9 kg BSA: 2.33 m2 Heart Rate: 78 bpm BP: 122 / 70 mmHg Hone Operator: SILVIA Referring MD: Jessica Michelle MD Shuttle Bus Driver: Tejas Edward MD Symptoms: R00.1 - Bradycardia, unspecified Study Quality: Adequate ECG Rhythm: Sinus Conclusions: - Essentially normal study Findings Left Ventricle Normal left ventricular size, thickness, and systolic function. The visually estimated ejection fraction is between 60-65%. Spectral Doppler is indicative of a normal filling pattern. Right Ventricle Normal right ventricular cavity size and systolic function. Atria Both atria are normal in size. There is no evidence of interatrial shunt. Aortic Valve Normal aortic valve structure and function. There is no aortic valve stenosis. There is no aortic valve regurgitation. Mitral Valve Normal mitral valve structure and function. There is trace mitral valve regurgitation. There is no mitral valve stenosis. Pulmonic Valve The pulmonic valve is likely normal. Tricuspid Valve Normal tricuspid valve structure. There is trace tricuspid valve regurgitation. The right ventricular systolic pressure is normal. The right ventricular systolic pressure is 27 mmHg. Normal right atrial pressure. There is no evidence of pulmonary hypertension. Great Vessels All visible segments of the aorta are normal in size. The pulmonary artery was not well visualized. Venous The inferior vena cava is normal in size and collapses greater than 50% with inspiration. Pericardium/Pleural There is no evidence of pericardial effusion. Prior Study Comparison No prior study available for comparison. Measurements 2D Linear Measurements IVSd: 0.93 0.6-0.9/0.6-1.0 cm LVIDd: 4.74 3.9-5.3/4.2-5.9 cm LVIDd Index: 2.03 2.4-3.2/2.2-3.1 cm/m2 LVIDs: 3.07 2.0-3.6 cm LVPWd: 0.72 0.7-1.1 cm LA Diam: 3.60 2.7-3.8/3.0-4.0 cm LAIDs Index: 1.55 1.5-2.3 cm/m2 LV Mass: 160.34 67-162/88-224 g LV Mass Index: 68.82 43-95/49-115 g/m2 LVOT Diam: 1.90 3.0+(-)1.3 cm 2D Systolic Function EF 4C: 59.80 >55% EF 2C: 60.50 >55% EF BiP: 60.50 >55% Mitral Valve MV Pk E: 0.89 MV PK A: 0.69 MV Decel Time: 182.00 E/A: 1.30 E'Lateral: 17.40 E'Medial: 9.68 E/E' Med: 9.20 E/E' Lat: 5.10 PHT: 53.00 MVA PHT: 4.15 Decel [place]: 4.89 Aortic Valve AoV Pk Manolo: 1.42 AoV Pk Grad: 8.00 EDWIN: 2.26 LVOT LVOT Pk Manolo: 1.11 LVOT Mn Manolo: 0.81 LVOT VTI: 0.23 LVOT Pk Grad: 5.00 LVOT Mn Grad: 3.00 LVOT Diam: 1.90 LVOT Area: 2.84 Diastolic Function MV Pk E: 0.89 MV Pk A: 0.69 E/A: 1.30 E'Medial: 9.68 E/E' Med: 9.20 E' Laterial: 17.40 E/E' Lat: 5.10 Right Ventricle TAPSE (mm): 20.30 TVS' Manolo: 14.90 Tricuspid Valve TR Pk Manolo: 2.47 TR Pk Grad: 24.00 RA Press: 3.00 RVSP: 27.00 Great Vessels Aorta Sinus of Valsalva: 2.70 2.0-3.5 cm Ao Asc: 2.70 2.1-3.4 cm Ao Arch: 2.30 Pulmonary Valve PV Pk Manolo: 1.05 Peak PV Grad: 4.00 Updated in Other Vendor System with Status of Final Tejas Edward MD electronically signed on 10/22/2023 2:30:43 PM with status of Final
[2023-10-22 11:49] LABS: HCG Quantitative < 2 mIU/mL; Thyroid Stimulating Hormone 3.04 uIU/mL (0.32-4.0)
[2023-10-22 11:54] LABS: Appearance Urine Turbid; Color Urine Dark Yellow; Glucose Urine UA Negative (Negative); Leukocyte Esterase Urine Trace (Negative); Nitrite Urine Negative (Negative); PH 5.5 (5.0-9.0); Specific Gravity - Urine >= 1.030 (1.005-1.025); UMIC TRIGGER UACC YES; Urine Blood Moderate (2+) (Negative); Urine Ketones Trace mg/dL (Negative); Urine Protein Trace mg/dL (Neg-Trace)
[2023-10-22 12:06] LABS: Bacteria Urine None Seen (None Seen); Hyaline Casts Urine 0-2 /LPF (0-2); WBC Urine 0-5 /HPF (0-5)
[2023-10-24 10:08] LABS: Follicle Stimulating Hormone 4.6 mIU/mL; Prolactin 9.9 ng/mL
[2023-10-29 23:38] LABS: Estradiol Free 0.72 pg/mL; Estradiol, Ultrasensitive 43 pg/mL
== END ==
LOC: HO.CARD 10:09
PROVIDERS: Advanced Practice Midwife; PCP Internal Medicine; Visit Provider Internal Medicine
DX: R00.1 Bradycardia, unspecified (principal); I49.8 Other specified cardiac arrhythmias; N91.2 Amenorrhea, unspecified
CPT/HCPCS: 36415; 81001; 82670; 82681; 83001; 84146; 84443; 84702; 93242; 93306

== ENCOUNTER → 2023-10-22 10:23 | Outpatient (BNV) | payer OTHER, SELFPAY | PROVIDERS: PCP Internal Medicine; Visit Provider Internal Medicine Cardiovascular Disease | DX: I47.10 Supraventricular tachycardia, unspecified (principal); I49.3 Ventricular premature depolarization | CPT/HCPCS: 93244; 93306 ==

== ENCOUNTER → 2023-11-06 07:38 | Outpatient (BNVA) | payer OTHER, SELFPAY | PROVIDERS: PCP Internal Medicine; Visit Provider Advanced Practice Midwife ==

== ENCOUNTER 2023-11-17 08:54 | Outpatient (REF) | payer OTHER, SELFPAY ==
[2023-11-17 10:33] LABS: Hematocrit 36.4 % (37.0-47.0); Hemoglobin 11.7 g/dl (12.0-16.0); Mean Corpuscular HGB Conc 32.1 g/dl (31.0-35.0); Mean Corpuscular Hemoglobin 27.2 pg (27.0-33.0); Mean Corpuscular Volume 84.7 fL (80.0-98.0); Mean Platelet Volume 9.3 fL (9.4-12.3); Platelet Count 354 X10*3/uL (160-400); Red Cell Distribution Width 14.6 % (11.0-16.0); White Blood Count 9.4 X10*3/uL (4.8-10.8)
== END 2023-11-17 08:55 | disposition home or self-care (01) ==
LOC: HO.LAB 08:54
PROVIDERS: PCP Internal Medicine; Visit Provider Obstetrics & Gynecology
DX: N93.9 Abnormal uterine and vaginal bleeding, unspecified (principal)
CPT/HCPCS: 36415; 85027

== ENCOUNTER 2023-11-17 08:54 | Outpatient (AMB) | payer OTHER, SELFPAY ==
[2023-11-17 09:02] VITALS: BP 108/60; BMI 37.8
--- NOTE | 2023-11-17 09:02 | A.OFFVIS_ITS ---
Vital Signs 11/17/23 09:02 Height 5 ft 5 in Weight 227 lb 1.218 oz BMI 37.8 BP 108/60 Intake Visit Reasons: Hysteroscopy consult Allergies No Known Allergies [No Known Allergies*] Allergy (Verified 11/06/23 07:39) HPI Comments Details: Presenting referred from Aimee Guzmán CNM regarding abnormal uterine bleeding. The patient has been having irregular menstrual cycles the following workup was done recently: In 11/08 TSH, hCG, prolactin within normal FSH in the menopausal range. Last pelvic ultrasound was in 10/07, last co testing in 09/07 was negative The patient recently experienced chest pain was seen by her PCP , Holter monitor any echocardiogram was done and the patient has a cardiology consult scheduled on 01/04/2024 [facility] Medical History Cyst of right ovary Frequency of urination Multinodular thyroid History of pre-eclampsia Heart murmur Anemia Menorrhagia Irregular uterine bleeding Dysfunctional uterine bleeding Anxiety Multiple thyroid nodules Low hemoglobin Vitamin D deficiency Enlarged thyroid Obesity Surgical History Hx of cholecystectomy Family History Mother Thyroid nodule Father Medical history unknown Other Mental health disorder Social History Household Members: Family Housing: Apartment Are you a primary complex care nurse practitioner to a significant other at home: No Alcohol intake: never Patient Tobacco Use Status: Never used Tobacco e-Cigarette/Vaping Use: Never Used Current occupational status: employed 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 needs: No Hearing needs: No Vision needs: No Female Reproductive History Menstrual Age of Menarche: 14 Review of Systems Const All systems reviewed & are unremarkable except as noted in HPI and below Reports as per HPI and Reports no additional complaints GI Reports no additional complaints Reports no additional complaints Physical Exam Vital Signs: Last Vital Signs BP 108/60 11/17/23 09:02 BMI result Body Mass Index 37.8 Assessment & Plan Assessment & Plan (1) Abnormal uterine bleeding: Code(s): N93.9 - Abnormal uterine and vaginal bleeding, unspecified Category: Medical Plan: CBC and pelvic ultrasound ordered. Discussed with the patient the different causes of abnormal bleeding including thyroid disorders, uterine and ovarian pathology, endometrial hyperplasia, carcinoma and other potential causes. Discussed with the patient the work up including CBC (to r/o anemia), TSH, pro lactin, pelvic Ultrasound, endometrial sampling to r/o endometrial pathology. Recommended to the patient that the next step is an endometrial sampling via hysteroscopy D&C possible polypectomy versus endometrial biopsy to r/o endometrial pathology including hyperplasia or cancer. All the pros and cons risks and benefits of each approach were discussed with the patient, endometrial biopsy being less invasive, office procedure with less sensitivity and inability diagnose a polyp and removal versus hysteroscopy done under anesthesia more invasive more sensitive to endometrial cancer and possibility of diagnosing and endometrial polyp with the possibility of polypectomy. All questions were answered pt verbalized understanding and decided to proceed with hysteroscopy D&C possible polypectomy/myomectomy. Instructions given the patient to schedule a preop appointment after cardiology consult appointment after 01/04/2024. Orders: Orders Complete Blood Count no Diff Today N93.9 - Abnormal uterine and vaginal bleeding, unspecified US pelvic and transvaginal Today N93.9 - Abnormal uterine and vaginal bleeding, unspecified Coding Level of Care Code Est Pt Level 3 (47462) Diagnoses Abnormal uterine bleeding N93.9
== END 2023-11-17 09:40 | disposition home or self-care (01) ==
LOC: HO.HWS 08:54
PROVIDERS: PCP Internal Medicine; Visit Provider Obstetrics & Gynecology
DX: N93.9 Abnormal uterine and vaginal bleeding, unspecified (principal)
CPT/HCPCS: 99213

== ENCOUNTER 2023-11-26 11:18 | Outpatient (REF) | payer OTHER, SELFPAY ==
--- NOTE | ~2023-11-26 | US_ITS ---
EXAMINATION: US PELVIS CLINICAL INFORMATION: Abnormal uterine and vaginal bleeding. COMPARISON: Pelvic ultrasound 10/15/2022. TECHNIQUE: Ultrasound of the pelvis is performed using both transabdominal and transvaginal transducers along with Doppler. Transvaginal imaging is performed due to inadequate visualization transabdominally. FINDINGS: Uterus: The uterus is anteverted and measures 7.4 x 3.8 x 5.4 cm. The double wall endometrial thickness is 5 mm. Nabothian cysts are present in the cervix. The uterus is smooth in contour and has normal myometrial echogenicity. No visible fibroid. Adnexa: Both ovaries are visualized. There is normal color flow to the adnexa. There is no ovarian torsion. There is no pelvic ascites or fluid collection. Right ovary measures 2.6 x 1.4 x 1.6 cm for a volume of 3.1 mL. Left ovary measures 2.2 x 1.3 x 1.7 cm for a volume of 2.6 mL. US/US pelvic and transvaginal IMPRESSION: Unremarkable pelvic ultrasound.
== END 2023-11-26 11:19 | disposition home or self-care (01) ==
LOC: HO.US 11:18
PROVIDERS: PCP Internal Medicine; Visit Provider Obstetrics & Gynecology
DX: N93.9 Abnormal uterine and vaginal bleeding, unspecified (principal)
CPT/HCPCS: 76830; 76856

== ENCOUNTER → 2024-01-12 14:20 | Outpatient (RCR) | payer OTHER, SELFPAY ==
[2020-03-16 13:47] VITALS: BP 133/70; RESP 12; TEMP 36.6; O2SAT 99; BMI 37.4
--- NOTE | 2020-03-16 14:04 | PM.HEMONCCN ---
Subjective - Subjective Chief complaint: Generalized weakness Consult date: 03/16/20 Primary Care Provider: Jessica Michelle MD HPI - Consult Narrative Reason for consult: Anemia Narrative: Aicha Ward is a 35 year old female referred for evaluation of anemia. She was 1st told of anemia in the summer of 2019 when she developed severe menstrual bleeding. Her hemoglobin was down to around 7 gram/dL in she received 1 unit blood transfusion. She was on oral iron supplementation for a few weeks, but she took herself off this medication because of mild constipation. Her last heavy period was in January. She has been seen by outboard system operator, she was recommended endometrial biopsy but has not yet had it. At this time, she denies any bleeding, exertional chest pain, shortness of breath or abdominal pain. She has some dizziness and weakness. 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 She has a 10-year-old child, she was not told of iron deficiency anemia during her . Review of Systems - Constitutional Reports as per HPI, Reports no additional constitutional complaints - Cardiovascular Reports no additional cardiovascular complaints - Respiratory Reports no additional respiratory complaints - Gastrointestinal Reports no additional gastrointestinal complaints, Denies abdominal pain, Denies black, tarry stools, Denies bloating, Denies bright, red blood in stools, Denies change in bowel habits, Denies nausea Oncology Screenings - ECOG Performance Status ECOG Performance Status: 1 [facility] Medical History: Medical History (Last Updated 03/16/20 @ 10:23 by Lorin Gunter) Anemia Anxiety Dysfunctional uterine bleeding Enlarged thyroid Heart murmur History of pre-eclampsia Irregular uterine bleeding Low hemoglobin Menorrhagia Multiple thyroid nodules Obesity Vitamin D deficiency Surgical History: Surgical History (Last Updated 03/16/20 @ 10:32 by Lorin Gunter) Hx of cholecystectomy Smoking status: Never smoker Home Medications and Allergies Home Medications Medication Instructions Recorded Confirmed Type ferrous sulfate 200 mg PO DAILY 03/16/20 03/16/20 History Allergies Allergy/AdvReac Type Severity Reaction Status Date / Time No Known Allergies Allergy Unverified 02/02/20 19:08 [No Known Allergies*] Physical Exam Vital signs: Vital Signs Temp 98 F 03/16/20 13:47 Resp 12 03/16/20 13:47 BP 133/70 03/16/20 13:47 Pulse Ox 99 03/16/20 13:47 Intake & Output 10/03/16/20 03/16/20 18:59 06:59 18:59 Other: Weight 102 kg Weight 102 kg - Constitutional Present: no acute distress - Routine HEENT Exam Head: Present: atraumatic, normal inspection Eye: Present: EOMI - Routine Neck Exam Present: supple, thyromegaly. Absent: lymphadenopathy - Routine Respiratory Exam Present: CTAB - Routine Cardiovascular Exam Cardiovascular: Present: RRR, S1, S2 - Routine Abdominal Exam Present: normal bowel sounds, soft. Absent: organomegaly - Routine Extremities Exam Present: full ROM. Absent: pedal edema - Routine Skin Exam Present: intact. 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 She required a blood transfusion in November 2019 because of severe anemia. She did respond to oral iron but she stopped taking it because of mild constipation. Today I discussed parenteral iron therapy, however patient would prefer to be on oral iron supplementation. She is willing to restart. I have asked her to take iron with vitamin-C to enhance absorption at least twice a day. I discussed using stool softeners if necessary for constipation. I asked her to call back if she does not tolerate oral iron. Rest of hematological workup is pending. She has no gastrointestinal symptoms to suggest GI blood losses. I thank you very much for this consultation. Follow-up in 2-3 months.
[2020-03-16 14:52] LABS: MANUAL DIFF FLAG NO
[2020-03-16 14:57] LABS: Basophils Percent Auto 0.3 % (0-2); Eosinophils Absolute Auto 0.1 X10*3/uL (0.0-0.4); Hematocrit 31.3 % (37-47); Hemoglobin 9.4 g/dl (12.0-16.0); Imm Gran Abs Auto 0.03 X10*3/uL (0.00-0.03); Imm Gran Pct Auto 0.3 % (0.0-0.4); Immature Retic Fraction 33.1 % (3.0-15.9); Lymphocytes Absolute Auto 2.7 X10*3/uL (1.2-4.9); Lymphocytes Percent Auto 26.7 % (20-40); Mean Corpuscular Volume 79.8 fL (80-98); Mean Platelet Volume 9.6 fL (9.4-12.3); Monocytes Absolute Auto 0.8 X10*3/uL (0.1-1.2); Neutrophils Absolute Auto 6.4 X10*3/uL (2.0-8.3); Neutrophils Percent Auto 63.7 % (45-73); Platelet Count 482 X10*3/uL (160-400); Red Blood Count 3.92 X10*6/uL (4.20-5.50); Red Cell Distribution Width 14.6 % (11.0-16.0); Retic HGB Equivalent 24.2 pg (30.0-35.0); Reticulocyte Percent 1.4 % (0.5-1.8); Reticulocytes Absolute 0.053 X10*6/uL (0.026-0.095); White Blood Count 10.1 X10*3/uL (4.8-10.8)
[2020-03-16 15:22] LABS: Iron 32 mcg/dL (30-160); Percent Iron Saturation 6 % (15-50); Total Iron Binding Capacity 506 mcg/dL (228-428); Unsaturated Iron Binding 474 ug/dL
--- NOTE | 2020-03-16 15:23 | PC.NURSE ---
Spoke with patient, i let her know that Dr Jansen would like her to take iron BID- she agrees. I also notified patient that I made her an appt for 05/22/2020 at 1:20pm.
[2020-03-16 15:55] LABS: Folate 9.7 ng/mL (> or = 4.0); Vitamin B12 531 pg/mL (200-900)
== END | disposition home or self-care (01) ==
LOC: HO.ONC 03-16 13:38
PROVIDERS: PCP Internal Medicine; Visit Provider Internal Medicine
DX: D50.0 Iron deficiency anemia secondary to blood loss (chronic) (principal); N92.1 Excessive and frequent menstruation with irregular cycle
CPT/HCPCS: 36415; 82607; 82746; 83540; 85025; 85045; 99204

== ENCOUNTER 2024-10-05 08:52 | Outpatient (AMB) | payer OTHER, SELFPAY ==
[2024-10-05 08:56] VITALS: BP 108/70; PULSE 66; O2SAT 99; BMI 39.6
--- NOTE | 2024-10-05 08:56 | A.OFFPC_ITS ---
Vital Signs 10/05/24 08:56 Height 5 ft 5 in Weight 238 lb BMI 39.6 BP 108/70 Blood Pressure Location Rt brachial Position Sitting Pulse 66 Pulse Source Pulse Oximeter Pulse Oximetry (%) 99 Oxygen Delivery Method Room Air Intake Visit Reasons: Annual PE Rn Otolaryngology Required: No Accompanied by: Self / Same As Patient Allergies No Known Allergies [No Known Allergies*] Allergy (Verified 10/05/24 08:57) Medication List - Last Reconciled 10/05/24 by Jessica Michelle MD cholecalciferol (vitamin D3) 50 mcg PO DAILY 90 days ferrous sulfate 200 mg PO DAILY Tobacco use date assessed: 10/05/24 Dental Screening Dental Screen Date: 10/05/24 Did you have a dental visit in the last 12 months?: Yes Did you have a dental problem in the last 6 months where you did not have access to dental care?: No Was dental information given to patient?: Patient has dentist HPI Annual PE HPI Details Physical exam appointment - The patient is a 39-year-old female pr esenting for a wellness visit. - Anemia: Patient was identified to be s lightly anemic last year with a hemoglobin level of 11.7 g/dL, for which she is currently taking iron supplements. She is not currently aware of any symptoms, but potential related cause identified as heavy menstrual bleeding. - Nasal Congestion: The patient reports nasal congestion possibly related to weather changes or allergies. - The patient denies experiencing heartb urn which was previously listed in her medical history but states no current issues. Health Maintenance - FARM SERVICE CONSULTANT visit is up to date, though angeline niño has yet to schedule a follow-up appointment. - Regular exercise discussed; patient en gages in walking for weight management. Medications - Iron supplements for management of ane karena. 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. Diagnostic results - Labs: Anemia identified with hemoglobi n level of 11.7 g/dL last year. Patient Instructions - Schedule an appointment with FARM SERVICE CONSULTANT as follow-up is necessary. - Increase physical activity to aid in w eight management. - Attend scheduled lab tests for monitor ing anemia. - Encourage continuation of current leslie min regimen. Review of Systems - General: No fever no chills - Neurological: No headaches no dizzin ess - Ear nose throat: No sore throat no hearing difficulty no ear pain - Cardiovascular: No syncope, no chest pain, no palpitations - Gastrointestinal: No nausea vomiting or diarrhea - Endocrine: No polyuria polydipsia no heat intolerance - Genitourinary: No dysuria - Skin: No new complaints Physical Exam General: Cooperative, healthy appearing, comfortable, no acute distress Orientation: Patient oriented x3 Head: Normal to inspection Ears: Within normal limit visually Nose: Nasal congestion present, possibly due to weather or cold Face and sinus: Normal facial exam Eyes: Appearance normal, extraocular movement intact pupils reactive Neck: Normal visual inspection and supple Respiratory: Normal respiratory effort and able to speak in complete sentences. Clear to auscultation, no stridor Cardiovascular: S1 and S2 RRR Breast exam benign GI: Normal to inspection. Soft to palpation and nontender Skin: Turgor normal, no acute findings, benign spots noted previously Neuro: Patient oriented x3, motor sensory intact, balance intact, tandem pass Extremities: Normal to inspection, no pain in knees PFSH Medical History Cyst of right ovary Frequency of urination Multinodular thyroid History of pre-eclampsia Heart murmur Anemia Menorrhagia Irregular uterine bleeding Dysfunctional uterine bleeding Anxiety Multiple thyroid nodules Low hemoglobin Vitamin D deficiency Enlarged thyroid Obesity Surgical History Hx of cholecystectomy Family History Mother Thyroid nodule Father Medical history unknown Other Mental health disorder Social History Household Members: Family Housing: Apartment Are you a primary animal daycare provider to a significant other at home: No Alcohol intake: never Patient Tobacco Use Status: Never used Tobacco e-Cigarette/Vaping Use: Never Used Current occupational status: employed 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 1. Little interest or pleasure in doing things: more than half the days 2. Feeling down, depressed, or hopeless: more than half the days 3. Trouble falling or staying asleep, or sleeping too much: more than half the days 4. Feeling tired or having little energy: more than half the days 5. Poor appetite or overeating: not at all 6. Feeling bad about yourself - or that you are a failure or have let yourself or your family down: more than half the days 7. Trouble concentrating on things, such as reading the newspaper or watching television: not at all 8. Moving or speaking so slowly that other people could have noticed. Or the opposite - being so fidgety or restless that you have been moving around a lot more than usual: not at all 9. Thoughts that you would be better off or of hurting yourself in some way: not at all Total score: 10 Depression Screening Interpretation: Positive Depression Screening Follow-up: Existing condition and Community Mental Health Worker F/U Depression Screening Done: Yes 89784 - PHQ-9 Billing: Yes Source: Developed by Drs. Ajith Sorto, Rachell Courtney, James Astudillo and colleagues, with an educational kristina from [employer]. Thrive Questionnaire Date Thrive assessed: 10/05/24 I am a: Patient What is your living situation today?: I have a steady place to live Within the past 12 months, did the food you bought not last and you didn't have the money to get more?: Never true Within the past 12 months, did you worry whether your food would run out before you got money to buy more?: Never true Do you have trouble paying for medicines?: No Do you have trouble getting transportation to medical appointments?: No Do you have trouble paying your heating and electricity bill?: No Do you have trouble taking care of your child, family member or friend?: No Do you have trouble with day-to-day activities such as bathing, preparing meals, shopping, managing finances, etc.?: No Are you currently unemployed and looking for a job?: No Are you interested in more education?: Yes Please select the resources that you would like help with: Education Currently or been in a relationship where the following occur: No concerns reported THRIVE Score: 0 AUDIT C Alcohol Use Questionnaire (AUDIT-C) 1. How often do you have a drink containing alcohol?: Never 3. How often do you have six or more drinks on one occasion?: Never Total Score: 0 Score Reviewed/Action Taken: Yes GALINA-7 AMB Questionnaire GALINA-7 Date GALINA - 7 assessed: 10/05/24 Feeling nervous, anxious, or on edge: 2 = More than half the days Not being able to stop or control worryin = More than half the days Worrying too much about different things: 2 = More than half the days Trouble relaxin = More than half the days Being so restless that it is hard to sit still: 0 = Not at all Becoming easily annoyed or irritable: 0 = Not at all Feeling afraid as if something awful might happen: 0 = Not at all Total GALINA-7 score (0-4 normal; 5-9 mild; 10-14 moderate; 15-21 severe): 8 Source: Developed by Drs. Ajith Sorto, Rachell Courtney, James Astudillo and colleagues, with an educational kristina from [employer]. GALINA-7 Assessment Billing GALINA-7 Assessment Tool: GALINA-7 Assessment 40878 Physical exam (Primary Care) Vital Signs: Last Vital Signs Pulse 66 10/05/24 08:56 BP 108/70 10/05/24 08:56 Pulse Ox 99 10/05/24 08:56 Oxygen Delivery Method Room Air 10/05/24 08:56 BMI result Body Mass Index 39.6 Tobacco/Smoking Status: Tobacco use Status Tobacco use date assessed 10/05/24 10/05/24 08:59 Patient Tobacco Use Status Never used Tobacco 10/05/24 08:59 e-Cigarette/Vaping Use Never Used 10/05/24 08:59 PHQ-9: PHQ-9 Score PHQ-9: Total score 10 10/05/24 09:16 Depression Screening Interpretation: Positive Depression Screening Follow-up: Existing condition and Community Mental Health Worker F/U Thrive Assessment: Date of Thrive Assessment Date Thrive assessed 10/05/24 10/05/24 08:59 Currently or been in a relationship where the following occur: No concerns reported Coding Level of Care Code Est Pt Level 3 (29138) Est Pt Prev Care 18-39y(89162) Diagnoses Encounter for general adult medical examination with abnormal findings Z00.01 Iron deficiency anemia due to chronic blood loss D50.0 Anemia type: iron deficiency Iron deficiency anemia type: chronic blood loss Class 2 obesity due to excess calories without serious comorbidity with body mass index (BMI) of 38.0 to 38.9 in adult E66.09; Z68.38 Body mass index: BMI 38.0-38.9 Obesity classification: adult class 2 (BMI 35 - 39.9) Serious obesity comorbidity presence: without serious comorbidity Positive depression screening Z13.31 Additional Codes GALINA-7 Assessment Billing - GALINA-7 Assessment Tool: GALINA-7 Assessment 18577 ([id number]) PHQ-9 - 35800 - PHQ-9 Billing: Yes ([id number]) Assessment & Plan Assessment & Plan (1) Encounter for general adult medical examination with abnormal findings: Code(s): Z00.01 - Encounter for general adult medical examination with abnormal findings Category: Medical (2) Anemia: Code(s): D64.9 - Anemia, unspecified Category: Medical Qualifiers: Anemia type: iron deficiency Iron deficiency anemia type: chronic blood loss Qualified Code(s): D50.0 - Iron deficiency anemia secondary to blood loss (chronic) (3) Obesity due to excess calories: Code(s): E66.09 - Other obesity due to excess calories Category: Medical Qualifiers: Body mass index: BMI 38.0-38.9 Obesity classification: adult class 2 (BMI 35 - 39.9) Serious obesity comorbidity presence: without serious comorbidity Qualified Code(s): E66.09 - Other obesity due to excess calories; Z68.38 - Body mass index [BMI] 38.0-38.9, adult (4) Positive depression screening: Code(s): Z13.31 - Encounter for screening for depression Category: Medical Plan Physical exam appointment - The patient is a 39-year-old female presenting for a wellness visit. - Anemia: Patient was identified to be slightly anemic last year with a h emoglobin level of 11.7 g/dL, for which she is currently taking iron supplements. She is not currently aware of any symptoms, but potential related cause identified as heavy menstrual bleeding. - Nasal Congestion: The patient reports nasal congestion possibly related to weather changes or allergies. - The patient denies experiencing heartburn which was previously listed in her medical history but states no current issues. Health Maintenance - FARM SERVICE CONSULTANT visit is up to date, though patient has yet to schedule a follow-up appointment. - Regular exercise discussed; patient engages in walking for weight management. Medications - Iron supplements for management of anemia. 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. Diagnostic results - Labs: Anemia identified with hemoglobin level of 11.7 g/dL last year. Patient Instructions - Schedule an appointment with FARM SERVICE CONSULTANT as follow-up is necessary. - Increase physical activity to aid in weight management. - Attend scheduled lab tests for monitoring anemia. - Encourage continuation of current vitamin regimen. Orders: Orders Vitamin D 25-OH (D2 and D3) Today D50.0 - Iron deficiency anemia secondary to blood loss (chronic), E66.09 - Other obesity due to excess calories, Z00.01 - Encounter for general adult medical examination with abnormal findings, Z68.38 - Body mass index [BMI] 38.0-38.9, adult Complete Blood Count Auto Diff Today D50.0 - Iron deficiency anemia secondary to blood loss (chronic), E66.09 - Other obesity due to excess calories, Z00.01 - Encounter for general adult medical examination with abnormal findings, Z68.38 - Body mass index [BMI] 38.0-38.9, adult Comprehensive [place]. Panel Fast Today D50.0 - Iron deficiency anemia secondary to blood loss (chronic), E66.09 - Other obesity due to excess calories, Z00.01 - Encounter for general adult medical examination with abnormal findings, Z68.38 - Body mass index [BMI] 38.0-38.9, adult Lipid Panel Today D50.0 - Iron deficiency anemia secondary to blood loss (chronic), E66.09 - Other obesity due to excess calories, Z00.01 - Encounter for general adult medical examination with abnormal findings, Z68.38 - Body mass index [BMI] 38.0-38.9, adult
== END 2024-10-05 09:14 | disposition home or self-care (01) ==
LOC: HO.HMCC 08:53
PROVIDERS: PCP Internal Medicine; Visit Provider Internal Medicine
DX: Z00.01 Encounter for general adult medical examination with abnormal findings (principal); D50.0 Iron deficiency anemia secondary to blood loss (chronic); E66.09 Other obesity due to excess calories; Z68.38 Body mass index [BMI] 38.0-38.9, adult; Z13.31 Encounter for screening for depression

== ENCOUNTER 2024-10-05 08:52 | Outpatient (REF) | payer OTHER, SELFPAY ==
[2024-10-05 10:10] LABS: MANUAL DIFF FLAG NO
[2024-10-05 10:11] LABS: Basophils Percent Auto 0.3 % (0-2); Eosinophils Absolute Auto 0.1 X10*3/uL (0.0-0.4); Eosinophils Percent Auto 1.2 % (0-4); Hematocrit 39.2 % (37.0-47.0); Hemoglobin 12.5 g/dl (12.0-16.0); Imm Gran Abs Auto 0.02 X10*3/uL (0.00-0.03); Imm Gran Pct Auto 0.3 % (0.0-0.4); Lymphocytes Absolute Auto 2.7 X10*3/uL (1.2-4.9); Lymphocytes Percent Auto 40.5 % (20-40); Mean Corpuscular HGB Conc 31.9 g/dl (31.0-35.0); Mean Corpuscular Hemoglobin 27.5 pg (27.0-33.0); Mean Corpuscular Volume 86.2 fL (80.0-98.0); Mean Platelet Volume 9.2 fL (9.4-12.3); Monocytes Absolute Auto 0.4 X10*3/uL (0.1-1.2); Monocytes Percent Auto 5.3 % (2-11); Neutrophils Absolute Auto 3.5 x10*3/uL (2.0-8.3); Neutrophils Percent Auto 52.4 % (45-73); Platelet Count 387 X10*3/uL (160-400); Red Blood Count 4.55 X10*6/uL (4.20-5.50); Red Cell Distribution Width 14.1 % (11.0-16.0); White Blood Count 6.7 X10*3/uL (4.8-10.8)
[2024-10-05 10:59] LABS: Alanine Aminotransferase 29 U/L (0-31); Albumin Level 4.6 g/dL (3.5-5.0); Alkaline Phosphatase 87 U/L (39-117); Anion Gap 10 (12-20); Aspartate Amino Transferase 30 U/L (5-31); Bilirubin Total 0.4 mg/dL (0.0-1.0); Blood Urea Nitrogen 14 mg/dL (9-16); Calcium 9.4 mg/dL (8.4-10.2); Carbon Dioxide 27 mmol/L (22-29); Chloride 106 mmol/L (96-108); Cholesterol 208 mg/dL (<200); Estimated Glomerular Filt Rate > 60; Glucose Fasting 103 mg/dL (60-99); HDL Cholesterol 47 mg/dL (>40); LDL Cholesterol Calculated 135 mg/dL (<100); Sodium 139 mmol/L (135-145); Triglycerides 130 mg/dL (<150)
[2024-10-09 16:32] LABS: Vitamin D 25-OH, D2 <4 ng/mL; Vitamin D 25-OH, D3 28 ng/mL; Vitamin D 25-OH, Total 28 ng/mL (30-100)
== END 2024-10-05 08:53 | disposition home or self-care (01) ==
LOC: HO.HMGCLDS 08:52
PROVIDERS: PCP Internal Medicine; Visit Provider Internal Medicine
DX: Z00.01 Encounter for general adult medical examination with abnormal findings (principal); D50.0 Iron deficiency anemia secondary to blood loss (chronic); E66.09 Other obesity due to excess calories; Z68.38 Body mass index [BMI] 38.0-38.9, adult
CPT/HCPCS: 36415; 80053; 80061; 82306; 85025; 96127